=== PATIENT | female | born 1945 | race Caucasian/White ===

== ENCOUNTER 2017-12-24 10:06 | Emergency (ER) | payer SELFPAY ==
[2017-12-24] MEDS: LORAZEPAM 1 MG TAB PO (12:46)
== END 2017-12-24 13:35 | disposition home or self-care (01) ==
LOC: FTE 10:06 → E/R 13:35
DX: R51 Headache (principal); R42 Dizziness and giddiness; I10 Essential (primary) hypertension
CPT/HCPCS: 70450; 71045; 93005; 99285-25